=== PATIENT | female | born 1965 | race Caucasian/White ===

== ENCOUNTER 2020-05-01 17:14 | Emergency (ER) | payer SELFPAY ==
[~2020-05-01] VITALS: Ht 167.6 cm; Wt 81.6 kg
[2020-05-01 17:24] VITALS: Ht 167.6 cm; Wt 81.6 kg
[2020-05-01 18:00] LABS: BASOPHIL % 0.3 % (0-2); PLATELET COUNT 246 x10^3mcL (130-400); RED CELL DISTRIBUTION WIDTH 13.5 % (11.5-14.5)
[2020-05-01 18:02] LABS: microscopic required? YES; urine erythrocyte TRACE (NEGATIVE)
[2020-05-01 18:12] LABS: CALCIUM 9.1 mg/dL (8.5-10.1); CARBON DIOXIDE 31.2 mmol/L (21-32); CREATININE SERUM 1.1 mg/dL (0.6-1.0)
[2020-05-01 18:16] LABS: ALBUMIN 4.3 g/dL (3.4-5.0); BILIRUBIN TOTAL 0.32 mg/dL (0.20-1.00); TOTAL PROTEIN, SERUM 7.7 g/dL (6.4-8.2)
[2020-05-01 18:38] LABS: POTASSIUM SERUM 3.9 mmol/L (3.5-5.1)
[2020-05-01 21:47] VITALS: BP 14139/8
== END 2020-05-01 21:47 | disposition home or self-care (01) ==
LOC: ED 17:14
PROVIDERS: Emergency Medicine
DX: N10 Acute pyelonephritis (principal); R74.8 Abnormal levels of other serum enzymes
CPT/HCPCS: 87491; 87591; J0696; J1885; J7030; Q9967